=== PATIENT | male | born 1980 | race Caucasian/White ===

== ENCOUNTER 2019-04-12 14:47 | Emergency (ER) | payer BC ==
[~2019-04-12] VITALS: Ht 175.3 cm; Wt 121.6 kg
--- NOTE | 2019-04-12 15:29 | PHYS DOC ---
Past Medical History Past Medical History: No Pertinent History Past Surgical History: Other Additional Past Surgical Histo: toe surgery, ear surgery Alcohol Use: None Drug Use: None Adult General Chief Complaint Chief Complaint: FINGER INJURY HPI HPI Patient is a 39 year old male who presents with slammed his left index finger in the back of his truck tail bed. Patient states it happened about 30 minutes before he arrived. Patient has a 1cm laceration over the the anterior index finger. Review of Systems Review of Systems Musculoskeletal: Index finger crush injury. Denies back pain or joint pain [] Integument: Index finger laceration. Denies rash or skin lesions [] All other systems were reviewed and found to be within normal limits, except as documented in this note. Current Medications Current Medications Current Medications Medications (Trade) Dose Ordered Sig/Theodore Start Time Stop Time Status Last Admin Dose Admin Diphtheria/ Tetanus/Acell Pertussis (Boostrix) 0.5 ml ONCE ONCE 04/12/19 15:30 04/12/19 15:31 DC 04/12/19 15:56 0.5 ML Lidocaine HCl (Lidocaine 1% 20ml Vial) 20 ml 1X ONCE 04/12/19 15:30 04/12/19 15:31 DC 04/12/19 15:54 20 ML Allergies Allergies Allergies Coded Allergies Type Severity Reaction Last Updated Verified No Known Drug Allergies 10/26/13 No Physical Exam Physical Exam Constitutional: Well developed, well nourished, no acute distress, non-toxic appearance. [] Skin: Left index finger laceration. Warm, dry, no erythema, no rash. [] Extremities: No tenderness, no cyanosis, no clubbing, ROM intact, Left index finger 1+ edema. [] Neurologic: Alert and oriented X 3, normal motor function, normal sensory function, no focal deficits noted. [] Psychologic: Affect normal, judgement normal, mood normal. [] Current Patient Data Vital Signs Vital Signs Date Time Temp Pulse Resp B/P (MAP) Pulse Ox O2 Delivery O2 Flow Rate FiO2 04/12/19 16:03 107 16 167/98 (121) 99 Room Air 04/12/19 14:55 99.2 99.2 EKG EKG [] Radiology/Procedures Radiology/Procedures [] Impressions: [facility] [address] [place] [address] IMAGING REPORT Signed PATIENT: SHAWANDA BERNARD ACCOUNT: [id number] : 1980 LOCATION: ER AGE: 39 SEX: M EXAM STATUS: REG ER ORD. PHYSICIAN: SU ALEX APRN REASON: slammed left index in tail bed, laceration over metacarpophalangeal PROCEDURE: HAND LEFT 3V Examination: HAND LEFT 3V History: Injury to index finger. Pain. Laceration. Comparison/Correlation: None Findings: Total of 3 images of the left hand were obtained. Nondisplaced fractures involving the second digit proximal phalanx are present. Possibility of intra-articular involvement is raised at the proximal aspect. No radiopaque foreign body. No significant degenerative change. Impression: Nondisplaced fracture involving the proximal aspect of the second digit proximal phalanx. Electronically signed by: Nba Shields MD (04/12/2019 3:45 PM) [facility] DICTATED and SIGNED BY: NBA SHIELDS MD DATE: 04/12/19 1545 Course & Med Decision Making Course & Med Decision Making 1cm laceration over the Left index finger metacarpophalangeal. Bleeding is controlled. Patient can bend his left index finger at all joints and extend it fully. Patient denies any pain. Cap refill less than 3 seconds. Radial pulses strong and present. There is 1+ edema to the left index finger. Patient is given a Boostrix in the ED. Xray shows Nondisplaced fracture involving the proximal aspect of the second digit proximal phalanx. Aluminum finger Splint placed. Patient placed on Antibiotic. Laceration Repair by me: Anesthesia: 1% lidocaine locally Location: Left index Tendon/Joint/Nerves: No injury Foreign body: None detected after copious irrigation and exploration Technique: 3 Simple Interrupted Sutures Complexity: No subcutaneous sutures/mucosal repair/edge excision Post Closure Length: 1cm Patient's bleeding was easily controlled in the department and there is no indication of anemia. No evidence of compartment syndrome, neurologic injury, vascular injury, open joint, tendon laceration, or foreign body. Patient is appropriate for outpatient follow up. 48 hour wound check. Scar minimization instructions given. Dragon Disclaimer Dragon Disclaimer This electronic medical record was generated, in whole or in part, using a voice recognition dictation system. Departure Departure Impression: Primary Impression: Proximal phalanx fracture of finger Additional Impression: Laceration Disposition: 01 HOME, SELF-CARE Condition: STABLE Referrals: NO PCP (PCP) ALLISON NOE MD Patient Instructions: Finger Fracture, Laceration Care, Adult Additional Instructions: Follow up with orthopedics as soon as possible. Use ice and Ibuprofen for pain. Sutures need to be removed in 10 days. Scripts Hydrocodone Bit/Acetaminophen (HYDROCODONE-APAP 5-325 ) 1 Tab Tablet 1 TAB PO PRN Q6HRS PRN for PAIN, #8 TAB 0 Refills Prov: SU ALEX APRN 04/12/19 Amoxicillin/Potassium Clav (AUGMENTIN 875-125 TABLET) 1 Each Tablet 1 TAB PO BID for 7 Days, #14 TAB 0 Refills Prov: SU ALEX APRN 04/12/19 Problem Qualifiers Primary Impression: Proximal phalanx fracture of finger Encounter type: initial encounter Finger: index finger Fracture type: open Fracture alignment: nondisplaced Laterality: left Qualified Codes: S62.641B - Nondisplaced fracture of proximal phalanx of left index finger, initial encounter for open fracture SU ALEX APRN Apr 12, 2019 15:29
[2019-04-12] MEDS ORDERED: LIDOCAINE 1% Multi-Dose 20 ML VIAL. INJ ONE (15:30)
[2019-04-12] MEDS ORDERED: DIPHTH,PERTUSS(ACELL),TET TOX 0.5 ML DISP.SYRIN. VAX IM ONE (15:30)
--- NOTE | 2019-04-12 15:48 | RAD ---
Examination: HAND LEFT 3V History: Injury to index finger. Pain. Laceration. Comparison/Correlation: None Findings: Total of 3 images of the left hand were obtained. Nondisplaced fractures involving the second digit proximal phalanx are present. Possibility of intra-articular involvement is raised at the proximal aspect. No radiopaque foreign body. No significant degenerative change. Impression: Nondisplaced fracture involving the proximal aspect of the second digit proximal phalanx. Electronically signed by: Nba Moore MD (04/12/2019 3:45 PM) [facility]
[2019-04-12 16:03] VITALS: BP 167/98
[2019-04-12] MEDS ORDERED: AMOX1TAB61 PO (16:59)
[2019-04-12] MEDS ORDERED: HYDROcodone/APAP 5/325MG 1 TAB TABLET PO ONE (18:00)
[2019-04-12] MEDS ORDERED: HYDR-2761 PO (18:01)
== END 2019-04-12 18:05 | disposition home or self-care (01) ==
LOC: ER 14:47
DX: S62.641B Nondisplaced fracture of proximal phalanx of left index finger, initial encounter for open fracture (principal); W23.0XXA Caught, crushed, jammed, or pinched between moving objects, initial encounter; Y93.89 Activity, other specified; Y92.89 Other specified places as the place of occurrence of the external cause; Y99.8 Other external cause status
CPT/HCPCS: 29130; 73130; 90471; 90715; 99284

== ENCOUNTER 2019-04-22 15:29 | Emergency (ER) | payer BC ==
[~2019-04-22] VITALS: Ht 175.3 cm; Wt 121.6 kg
[~2019-04-22 15:29] MED LIST: AMOX1TAB61 PO; HYDR-2761 PO
[2019-04-22 15:45] VITALS: BP 136/87
--- NOTE | 2019-04-22 16:03 | PHYS DOC ---
Past Medical History Past Medical History: No Pertinent History (FRANCY PHELAN APRN) Past Surgical History: Other Additional Past Surgical Histo: toe surgery, ear surgery (FRANCY PHELAN APRN) Alcohol Use: None Drug Use: None (FRANCY PHELAN APRN) Attending Signature I have participated in the care of this patient and I have reviewed and agree with all pertinent clinical information above including history, exam, and recommendations. (ALEX RIDLEY MD) Adult General Chief Complaint Chief Complaint: SUTURE/STAPLE REMOVAL HPI HPI Patient is a 39 year old male who presents for suture removal from the left index finger, sutures have been in for 10 days. Denies any issues with the wound healing. He states he has a fractured finger and already saw the orthopedic doctor. (FRANCY PHELAN APRN) Review of Systems Review of Systems Constitutional: Denies fever or chills [] Musculoskeletal: Denies back pain or joint pain [] Integument: Visit for suture removal Neurologic: Denies headache, focal weakness or sensory changes [] All other systems were reviewed and found to be within normal limits, except as documented in this note. (FRANCY PHELAN APRN) Allergies Allergies Allergies Coded Allergies Type Severity Reaction Last Updated Verified No Known Drug Allergies 10/26/13 No (ALEX RIDLEY MD) Physical Exam Physical Exam Constitutional: Well developed, well nourished, no acute distress, non-toxic appearance. [] Skin: Ventral aspect of the left index finger at the MIP joint with a well approximated laceration with 3 interrupted sutures, no signs of infection, sutures were removed by me. Back: No tenderness, no CVA tenderness. [] Extremities: No tenderness, no cyanosis, no clubbing, ROM intact, no edema. [] Neurologic: Alert and oriented X 3, normal motor function, normal sensory func tion, no focal deficits noted. [] Psychologic: Affect normal, judgement normal, mood normal. [] (FRANCY PHELAN APRN) Current Patient Data Vital Signs Vital Signs Date Time Temp Pulse Resp B/P (MAP) Pulse Ox O2 Delivery O2 Flow Rate FiO2 04/22/19 15:45 98.2 103 20 136/87 (103) 96 Room Air 98.2 (ALEX RIDLEY MD) EKG EKG [] (FRANCY PHELAN APRN) Radiology/Procedures Radiology/Procedures [] (FRANCY PHELAN APRN) Course & Med Decision Making Course & Med Decision Making Pertinent Labs and Imaging studies reviewed. (See chart for details) This is a 39-year-old male patient who presents to the ED today for suture removal from the left index finger, sutures have been in for 10 days. Tetanus up-to-date. Sutures were removed by me. Return precautions provided. (FRANCY PHELAN APRN) Dragon Disclaimer Dragon Disclaimer This electronic medical record was generated, in whole or in part, using a voice recognition dictation system. (FRANCY PHELAN APRN) Departure Departure Impression: Primary Impression: Visit for suture removal Disposition: HOME, SELF-CARE Condition: STABLE Referrals: NO PCP (PCP) follow up with your doctor as needed Patient Instructions: Suture Removal-Brief Additional Instructions: We removed stitches from your left index finger, keep the area clean and dry. Follow-up with your doctor in 1-2 weeks as needed. FRANCY PHELAN APRN Apr 22, 2019 16:03 ALEX RIDLEY MD Apr 23, 2019 06:18
== END 2019-04-22 16:20 | disposition home or self-care (01) ==
LOC: ER 15:29
DX: S61.211D Laceration without foreign body of left index finger without damage to nail, subsequent encounter (principal); X58.XXXD Exposure to other specified factors, subsequent encounter
CPT/HCPCS: 99281